=== PATIENT | female | born 1930 | race Caucasian/White ===

== ENCOUNTER 2019-01-10 10:41 | Inpatient (IN) | payer OTHER ==
[~2019-01-10] VITALS: Ht 157.5 cm; Wt 43.5 kg
[~2019-01-10 10:41] MED LIST: ASPI81TA59 PO; CHOL100013 PO; METO-239 PO; OMEG1CAP27 PO
[2019-01-10] MEDS ORDERED: ONDANSETRON PF 4 MG/2 ML VIAL. IV ONE (11:45)
[2019-01-10] MEDS ORDERED: IV NORMAL SALINE 500ML BAG 500 ML IV ONE (11:45)
[2019-01-10 12:03] LABS: BASO # 0.1 x10^3/uL (0.0-0.2); BASO % 1 % (0-3); EOS # 0.1 x10^3/uL (0.0-0.7); EOS % 1 % (0-3); HEMATOCRIT 40.5 % (36.0-47.0); LYMPH # 0.8 x10^3/uL (1.0-4.8); LYMPH % 9 % (24-48); MEAN CORPUSCULAR HEMOGLOBIN 29 pg (25-35); MEAN CORPUSCULAR HGB CONC 32 g/dL (31-37); MEAN CORPUSCULAR VOLUME 90 fL (79-100); MONO # 0.6 x10^3/uL (0.0-1.1); MONO % 7 % (0-9); NEUT # 7.1 x10^3uL (1.8-7.7); NEUT % 82 % (31-73); PLATELET COUNT 192 x10^3/uL (140-400); RED BLOOD COUNT 4.49 x10^6/uL (3.50-5.40); RED CELL DISTRIBUTION WIDTH 13.6 % (11.5-14.5); WHITE BLOOD COUNT 8.7 x10^3/uL (4.0-11.0)
[2019-01-10 12:04] LABS: BILIRUBIN,URINE NEGATIVE (NEG); CLARITY,URINE CLEAR; COLOR,URINE YELLOW; NITRITE,URINE NEGATIVE (NEG); PROTEIN,URINE 30 mg/dL (NEG-TRACE); UROBILINOGEN,URINE 0.2 mg/dL (0.2 mg/dL)
[2019-01-10 12:06] LABS: CALCIUM 9.6 mg/dL (8.5-10.1); CREATININE 1.1 mg/dL (0.6-1.0); GFR 47.1; POTASSIUM 3.8 mmol/L (3.5-5.1)
--- NOTE | 2019-01-10 12:08 | EKG ---
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
--- NOTE | 2019-01-10 12:10 | RAD ---
WRIST 3V LEFT, CHEST AP ONLY Clinical indications: Dizziness. Fall. Left wrist pain. Portable AP upright chest x-ray. COMPARISON: September 14, 2015. Findings: Old granulomatous disease is evident. Hyperinflation is seen consistent with COPD. No acute lung infiltrate or pleural effusion or pulmonary edema or lung mass or pneumothorax is seen. Heart size is enlarged but stable. The pulmonary vasculature, mediastinum and both shonda are unremarkable. Old healed lateral lower right rib cage fracture is evident. IMPRESSION: No acute radiographic abnormality is seen. COPD. Stable cardiomegaly. 3 VIEW LEFT WRIST STUDY: There is a nondisplaced fracture of the ulnar styloid process. There is fracture of the radial styloid process which is nondisplaced. Another fracture line is seen extending through the metaphysis and the epiphysis. Therefore, this is a comminuted fracture. There is mild anterior angulation of the apex of the fracture site. The fracture is impacted. No lytic process is seen. 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 IMPRESSION: Acute posttraumatic fractures of the distal left radius and ulna. Electronically signed by: Angel Pierre MD (01/10/2019 12:07 PM) [place] [id number]
[2019-01-10 12:12] LABS: ALBUMIN 3.9 g/dL (3.4-5.0); ALBUMIN/GLOBULIN RATIO 1.4 (1.0-1.7); MAGNESIUM 1.8 mg/dL (1.8-2.4); TOTAL BILIRUBIN 0.9 mg/dL (0.2-1.0); TOTAL PROTEIN 6.6 g/dL (6.4-8.2)
[2019-01-10 12:17] LABS: BACTERIA,URINE FEW /HPF (0-FEW); RBC,URINE OCC /HPF (0-2); SQUAMOUS EPITHELIAL CELL,UR FEW /LPF
--- NOTE | 2019-01-10 12:20 | RAD ---
CT HEAD AND CERVICAL SPINE WO Indication: Dizziness. Patient fell. Exposure: One or more of the following individualized dose reduction techniques were utilized for this examination: 1. Automated exposure control 2. Adjustment of the mA and/or kV according to patient size 3. Use of iterative reconstruction technique. Technique: Standard imaging without intravenous contrast. Head: No acute intracranial hemorrhage, mass effect, midline shift or abnormal extra-axial fluid collection. Mild prominence of ventricles and sulci compatible with mild atrophy. Mild white matter low attenuation, nonspecific but commonly due to chronic small vessel ischemic disease. Intracranial arterial calcifications. Orbits appear symmetric. No large scalp hematoma. Visualized sinuses are clear. No depressed skull fracture is seen. IMPRESSION: Chronic findings. No evidence of acute intracranial hemorrhage. Cervical spine Ring of C1 is intact. Cervico-occipital junction intact. C1-C2 are symmetric. Vertebral body height and alignment are intact. There is no evidence of acute fracture. No aggressive bone destruction. Multilevel degenerative change with marginal spurring. Facet joint degenerative change without locked or perched facet joint. Bilateral neural foraminal encroachment at multiple levels. No high-grade central osseous spinal stenosis. No prevertebral soft tissue swelling or hematoma. No large thyroid mass. Lung apices appear grossly clear. IMPRESSION: 1. Degenerative spondylosis. 2. No evidence of acute fracture or traumatic subluxation. Electronically signed by: Jose Sevilla MD (01/10/2019 12:17 PM) [facility]
--- NOTE | 2019-01-10 12:42 | PHYS DOC ---
Past Medical History Past Medical History: Arthritis, Hypertension Past Surgical History: Cholecystectomy Alcohol Use: None Drug Use: None Adult General Chief Complaint Chief Complaint: SYNCOPE HPI HPI 88 y/o female presents to ER via POV following a near syncope episode at home this morning around 8:30 a.m.. She reports she had a couple of episodes where she would try and stand up and became dizziness and didn't felt right. She reports she stood and tried to walk however feeling so dizzy and feeling faint she fell forward. She reports she brace herself during fall with her lt upper extremity and has deformity/swelling/pain at lt wrist. She denies striking her head or having any head/neck/back pain. Pt denies any CP/palpitations/SOA. Pt's son is at bedside during discussion and exam. Review of Systems Review of Systems Constitutional: Denies fever or chills. Denies LOC Eyes: Denies change in visual acuity, redness, or eye pain [] HENT: Denies nasal congestion or sore throat [] Respiratory: Denies cough or shortness of breath [] Cardiovascular: Denies CP GI: Denies abdominal pain, nausea, vomiting, bloody stools or diarrhea [] : Denies dysuria or hematuria [] Musculoskeletal: Denies back/neck pain. Reports lt wrist pain/swelling Integument: Denies rash or skin lesions [] Neurologic: Denies headache, focal weakness or sensory changes. Reports dizzine ss and feeling faint/near syncope episode All other systems were reviewed and found to be within normal limits, except as documented in this note. Current Medications Current Medications Current Medications Medications (Trade) Dose Ordered Sig/Kiya Start Time Stop Time Status Last Admin Dose Admin Ondansetron HCl (Zofran) 4 mg 1X ONCE 01/10/19 11:45 01/10/19 11:46 DC 01/10/19 11:48 4 MG Sodium Chloride 500 ml @ 500 mls/hr 1X ONCE 01/10/19 11:45 01/10/19 12:44 DC 01/10/19 11:49 500 MLS/HR Allergies Allergies Allergies Coded Allergies Type Severity Reaction Last Updated Verified NSAIDS (Non-Steroidal Anti-Inflamma Allergy Intermediate 09/15/15 Yes Opioids - Morphine Analogues Allergy Intermediate 09/15/15 Yes Opioids-Meperidine and Related Allergy Intermediate 09/15/15 Yes Opioids-Methadone and Related Allergy Intermediate 09/15/15 Yes butorphanol Allergy Intermediate 09/15/15 Yes codeine Allergy Intermediate 09/15/15 Yes hydrocodone Allergy Intermediate 09/15/15 Yes oxycodone Allergy Intermediate 09/15/15 Yes pentazocine Allergy Intermediate 09/15/15 Yes Physical Exam Physical Exam Constitutional: Well developed, well nourished, no acute distress, non-toxic appearance. Clear speech- no facial droop HENT: Normocephalic, atraumatic, bilateral ears normal, oropharynx moist, no oral injury, nose normal. [] Eyes: 3mm PERRLA, EOMI- no pain with eye movements, no nystagmus, conjunctiva normal, no discharge. [] Neck: Normal range of motion, no tenderness on palp. mid line cspine- no deformity/crepitus, supple, no stridor. [] Cardiovascular: Heart rate regular rhythm, no murmur [] Lungs & Thorax: Bilateral breath sounds clear to auscultation- resp. equal/nonlabored. No chest wall tenderness or visible injury Abdomen: Bowel sounds normal, soft, no tenderness/distention, no masses, no pulsatile masses. [] Skin: Warm, dry Back: No tenderness midline spine- no palp. deformity, no CVA tenderness. [] Extremities: Pelvis stable/nontender. No cyanosis, no clubbing. Rt bilat. LEs nontender w/full ROM. 2+ dorsalis pedis/posterior tibial. Rt upper exam NL. 2+ bilat. radial. Lt shoulder/elbow nontender w/full ROM no palp. deformity. Lt distal forearm swelling/deformity to anterior wrist- decreased ROM. Nontender lt hand/fingers- cap refill brisk and pt able to move all fingers. Neurologic: Alert and oriented X 3, normal motor function, normal sensory function, no focal deficits noted. [] Psychologic: Affect normal, judgement normal, mood normal. [] Current Patient Data Vital Signs Vital Signs Date Time Temp Pulse Resp B/P (MAP) Pulse Ox O2 Delivery O2 Flow Rate FiO2 01/10/19 12:00 70 16 179/85 (116) 98 Room Air 01/10/19 11:11 98.6 98.6 Lab Values Laboratory Tests Test 01/10/19 11:10 01/10/19 11:30 Urine Collection Type Unknown Urine Color Yellow Urine Clarity Clear Urine pH 5.0 Urine Specific [place] 1.025 Urine Protein 30 mg/dL (NEG-TRACE) Urine Glucose (UA) Negative mg/dL (NEG) Urine Ketones (Stick) Negative mg/dL (NEG) Urine Blood Negative (NEG) Urine Nitrite Negative (NEG) Urine Bilirubin Negative (NEG) Urine Urobilinogen Dipstick 0.2 mg/dL (0.2 mg/dL) Urine Leukocyte Esterase Negative (NEG) Urine RBC Occ /HPF (0-2) Urine WBC 1-4 /HPF (0-4) Urine Squamous Epithelial Cells Few /LPF Urine Bacteria Few /HPF (0-FEW) Urine Mucus Marked /LPF White Blood Count 8.7 x10^3/uL (4.0-11.0) Red Blood Count 4.49 x10^6/uL (3.50-5.40) Hemoglobin 13.0 g/dL (12.0-15.5) Hematocrit 40.5 % (36.0-47.0) Mean Corpuscular Volume 90 fL (79-100) Mean Corpuscular Hemoglobin 29 pg (25-35) Mean Corpuscular Hemoglobin Concent 32 g/dL (31-37) Red Cell Distribution Width 13.6 % (11.5-14.5) Platelet Count 192 x10^3/uL (140-400) Neutrophils (%) (Auto) 82 % (31-73) H Lymphocytes (%) (Auto) 9 % (24-48) L Monocytes (%) (Auto) 7 % (0-9) Eosinophils (%) (Auto) 1 % (0-3) Basophils (%) (Auto) 1 % (0-3) Neutrophils # (Auto) 7.1 x10^3uL (1.8-7.7) Lymphocytes # (Auto) 0.8 x10^3/uL (1.0-4.8) L Monocytes # (Auto) 0.6 x10^3/uL (0.0-1.1) Eosinophils # (Auto) 0.1 x10^3/uL (0.0-0.7) Basophils # (Auto) 0.1 x10^3/uL (0.0-0.2) Sodium Level 139 mmol/L (136-145) Potassium Level 3.8 mmol/L (3.5-5.1) Chloride Level 101 mmol/L (98-107) Carbon Dioxide Level 27 mmol/L (21-32) Anion Gap 11 (6-14) Blood Urea Nitrogen 23 mg/dL (7-20) H Creatinine 1.1 mg/dL (0.6-1.0) H Estimated GFR (Cockcroft-Gault) 47.1 BUN/Creatinine Ratio 21 (6-20) H Glucose Level 127 mg/dL (70-99) H Calcium Level 9.6 mg/dL (8.5-10.1) Magnesium Level 1.8 mg/dL (1.8-2.4) Total Bilirubin 0.9 mg/dL (0.2-1.0) Aspartate Amino Transferase (AST) 23 U/L (15-37) Alanine Aminotransferase (ALT) 29 U/L (14-59) Alkaline Phosphatase 42 U/L (46-116) L Troponin I Quantitative < 0.017 ng/mL (0.000-0.055) Total Protein 6.6 g/dL (6.4-8.2) Albumin 3.9 g/dL (3.4-5.0) Albumin/Globulin Ratio 1.4 (1.0-1.7) Laboratory Tests 01/10/19 11:30 Laboratory Tests 01/10/19 11:30 EKG EKG EKG obtained 01/10/19 at [address] Hernandez Sinus rhythm PACs Rate 73 No STEMI Radiology/Procedures Radiology/Procedures PROCEDURE: CHEST AP ONLY WRIST 3V LEFT, CHEST AP ONLY Clinical indications: Dizziness. Fall. Left wrist pain. Portable AP upright chest x-ray. COMPARISON: September 14, 2015. Findings: Old granulomatous disease is evident. Hyperinflation is seen consistent with COPD. No acute lung infiltrate or pleural effusion or pulmonary edema or lung mass or pneumothorax is seen. Heart size is enlarged but stable. The pulmonary vasculature, mediastinum and both shonda are unremarkable. Old healed lateral lower right rib cage fracture is evident. IMPRESSION: No acute radiographic abnormality is seen. COPD. Stable cardiomegaly. 3 VIEW LEFT WRIST STUDY: There is a nondisplaced fracture of the ulnar styloid process. There is fracture of the radial styloid process which is nondisplaced. Another fracture line is seen extending through the metaphysis and the epiphysis. Therefore, this is a comminuted fracture. There is mild anterior angulation of the apex of the fracture site. The fracture is impacted. No lytic process is seen. 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 IMPRESSION: Acute posttraumatic fractures of the distal left radius and ulna. Electronically signed by: David Pierre MD (01/10/2019 12:07 PM) [facility] DICTATED and SIGNED BY: DAVID PEIRRE MD DATE: 01/10/19 1207 PROCEDURE: CT HEAD AND CERVICAL SPINE WO CT HEAD AND CERVICAL SPINE WO Indication: Dizziness. Patient fell. Exposure: One or more of the following individualized dose reduction techniques were utilized for this examination: 1. Automated exposure control 2. Adjustment of the mA and/or kV according to patient size 3. Use of iterative reconstruction technique. Technique: Standard imaging without intravenous contrast. Head: No acute intracranial hemorrhage, mass effect, midline shift or abnormal extra-axial fluid collection. Mild prominence of ventricles and sulci compatible with mild atrophy. Mild white matter low attenuation, nonspecific but commonly due to chronic small vessel ischemic disease. Intracranial arterial calcifications. Orbits appear symmetric. No large scalp hematoma. Visualized sinuses are clear. No depressed skull fracture is seen. IMPRESSION: Chronic findings. No evidence of acute intracranial hemorrhage. Cervical spine Ring of C1 is intact. Cervico-occipital junction intact. C1-C2 are symmetric. Vertebral body height and alignment are intact. There is no evidence of acute fracture. No aggressive bone destruction. Multilevel degenerative change with marginal spurring. Facet joint degenerative change without locked or perched facet joint. Bilateral neural foraminal encroachment at multiple levels. No high-grade central osseous spinal stenosis. No prevertebral soft tissue swelling or hematoma. No large thyroid mass. Lung apices appear grossly clear. IMPRESSION: 1. Degenerative spondylosis. 2. No evidence of acute fracture or traumatic subluxation. Electronically signed by: Jose Sevilla MD (01/10/2019 12:17 PM) [facility] DICTATED and SIGNED BY: JOSE SEVILLA MD DATE: 01/10/19 1217 Course & Med Decision Making Course & Med Decision Making Pertinent Labs and Imaging studies reviewed. (See chart for details) 1230: Patient was evaluated in the ER for near syncope episode which caused her to fall forward. Patient had labs, EKG, and imaging done. Pt was reluctant on pain meds d/t previous sensitivity. Head and C-spine images negative for acute findings and patient denies striking her head. CT was obtained due to dizziness but with fall when ahead and obtain cervical spine imaging as well. Chest x-ray negative for acute findings. Left wrist x-ray showing acute fractures to distal ulna/radius. Volar splint was placed on patient and she remains PMS intact lt upper extremity following splint and in all other extremities. Pt reported improved pain w/splint placement. Patient has had no confusion remaining alert and oriented 3. At this time patient continues to complain of feeling lightheaded after 500 mL normal saline bolus and just not feeling right- she has no focal neuro deficits and has had no decreased LOC or change in MS. With patient living alone and her ongoing lightheadedness and not feeling herself discussed admission with her- she is preferring admission for further monitoring- will admit to hospitalist services for further monitoring and care. She continues to deny any chest pain or shortness of air. Patient's son at bedside during discussion. Will consult orthopedics with admit orders for lt wrist fx. Dragon Disclaimer Dragon Disclaimer This electronic medical record was generated, in whole or in part, using a voice recognition dictation system. Departure Departure Impression: Primary Impression: Near syncope Additional Impression: Wrist fracture, left Disposition: ADMITTED INPATIENT Admitting Physician: Alberto Tamez Condition: STABLE Referrals: UNKNOWN PCP NAME (PCP) Scripts Hydralazine Hcl (HYDRALAZINE HCL) 10 Mg Tablet 1 TAB PO BID for htn, #60 TAB 3 Refills Prov: JULIANA HOWELL MD 01/11/19 Problem Qualifiers SEDA SANDOVAL APRN January 10, 2019 12:42
--- NOTE | 2019-01-10 13:52 | PDOC1 ---
History and Physical Date of Admission Date of Admission DATE: 01/10/19 TIME: 13:51 Identification/Chief Complaint Chief Complaint fall at home today, was dizzy prior to fall, denies LOC, SEEN IN ER Past Medical History Past Medical History Past Medical History Past Medical History: Arthritis, Hypertension Past Surgical History: Cholecystectomy Alcohol Use: None Drug Use: None family hx htn Cardiovascular: HTN Musculoskeletal: Osteoarthritis Past Surgical History Past Surgical History: Cholecystectomy Family History Family History: Hypertension Social History Smoke: No ALCOHOL: none Drugs: None Current Problem List Problem List Problems Medical Problems: (1) Wrist fracture, left Status: Acute Current Medications Current Medications Current Medications Sodium Chloride 500 ml @ 500 mls/hr 1X ONCE IV Last administered on 01/10/19at 11:49; Start 01/10/19 at 11:45; Stop 01/10/19 at 12:44; Status DC Ondansetron HCl (Zofran) 4 mg 1X ONCE IV Last administered on 01/10/19at 11:48; Start 01/10/19 at 11:45; Stop 01/10/19 at 11:46; Status DC Acetaminophen (Tylenol) 650 mg PRN Q4HRS PRN PO PAIN; Start 01/10/19 at 13:15; Stop 01/11/19 at 13:14 Active Scripts Active Reported Vitamin D (Cholecalciferol (Vitamin D3)) 1,000 Unit Capsule 1 Cap PO DAILY Children's Aspirin (Aspirin) 81 Mg Tab.chew 81 Mg PO DAILY Fish Oil 1,000 Mg Softgel ([place]-3 Fatty Acids/Fish Oil) 1 Each Capsule 1 Each PO BID Metoprolol Succinate ( Xl ) (Metoprolol Succinate) 25 Mg Tab.er.24h 1 Tab PO DAILY Allergies Allergies: Coded Allergies: NSAIDS (Non-Steroidal Anti-Inflamma (Verified Allergy, Intermediate, 09/15/15) Opioids - Morphine Analogues (Verified Allergy, Intermediate, 09/15/15) Opioids-Meperidine and Related (Verified Allergy, Intermediate, 09/15/15) Opioids-Methadone and Related (Verified Allergy, Intermediate, 09/15/15) butorphanol (Verified Allergy, Intermediate, 09/15/15) codeine (Verified Allergy, Intermediate, 09/15/15) hydrocodone (Verified Allergy, Intermediate, 09/15/15) oxycodone (Verified Allergy, Intermediate, 09/15/15) pentazocine (Verified Allergy, Intermediate, 09/15/15) ROS Review of System Review of Systems Review of Systems Constitutional: Denies fever or chills [] Eyes: Denies change in visual acuity, redness, or eye pain [] HENT: Denies nasal congestion or sore throat [] Respiratory: Denies cough or shortness of breath [] Cardiovascular: No additional information not addressed in HPI [] GI: Denies abdominal pain, nausea, vomiting, bloody stools or diarrhea [] : Denies dysuria or hematuria [] Musculoskeletal: Denies back pain pos wrist joint pain [] Integument: Denies rash or skin lesions [] Neurologic: Denies headache, focal weakness or sensory changes [] Endocrine: Denies polyuria or polydipsia [] 14 pt systems were reviewed and found to be within normal limits, except as documented Hematological and Lymphatic: No: Bleeding Problems, Blood Clots, Blood Transfusions, Brusing, Night Sweats, Pallor, Swollen Lymph Nodes, Other Respiratory: No: Cough, Hemoptysis, Orthopnea, Pleuritic Pain, Shortness of breath, SOB with excertion, Sputum Changes, Stridor, Tachypnea, Wheezing, Other Cardiovascular: No Chest Pain, No Palpitations, No Orthopnea, No Paroxysmal Noc. Dyspnea, No Edema, No Lt Headedness, No Other Gastrointestinal: No Nausea, No Vomiting, No Abdominal Pain, No Diarrhea, No Constipation, No Melena, No Hematochezia, No Other Musculoskeletal: Yes Joint Pain Physical Exam Physical Exam Physical Exam Physical Exam Constitutional: Well developed, well nourished, mild acute distress, non-toxic appearance. [] HENT: Normocephalic, atraumatic, bilateral external ears normal, oropharynx moist, no oral exudates, nose normal. [] Eyes: PERRLA, EOMI, conjunctiva normal, no discharge. [] Neck: Normal range of motion, no tenderness, supple, no stridor. [] Cardiovascular:Heart rate regular rhythm, no murmur [] Lungs & Thorax: Bilateral breath sounds clear to auscultation [] Abdomen: Bowel sounds normal, soft, no tenderness, no masses, no pulsatile masses. [] Skin: Warm, dry, no erythema, no rash. [] Back: No tenderness, no CVA tenderness. [] Extremities: wrist tenderness, no cyanosis, no clubbing, [] Neurologic: Alert and oriented X 3, normal motor function, normal sensory function, no focal deficits noted. [] Psychologic: Affect normal, judgement normal, mood normal. [] Breasts: Not examined Abdomen: Normal bowel sounds, Soft Neuro: Normal speech, Cranial nerves 3-12 NL Psych/Mental Status: Mental status NL, Mood NL Vitals Vitals Vital Signs Date Time Temp Pulse Resp B/P (MAP) Pulse Ox O2 Delivery O2 Flow Rate FiO2 01/10/19 13:00 68 16 178/86 (116) 95 Room Air 01/10/19 11:11 98.6 98.6 Labs Labs Laboratory Tests Test 01/10/19 11:10 01/10/19 11:30 Urine Collection Type Unknown Urine Color Yellow Urine Clarity Clear Urine pH 5.0 Urine Specific [place] 1.025 Urine Protein 30 mg/dL (NEG-TRACE) Urine Glucose (UA) Negative mg/dL (NEG) Urine Ketones (Stick) Negative mg/dL (NEG) Urine Blood Negative (NEG) Urine Nitrite Negative (NEG) Urine Bilirubin Negative (NEG) Urine Urobilinogen Dipstick 0.2 mg/dL (0.2 mg/dL) Urine Leukocyte Esterase Negative (NEG) Urine RBC Occ /HPF (0-2) Urine WBC 1-4 /HPF (0-4) Urine Squamous Epithelial Cells Few /LPF Urine Bacteria Few /HPF (0-FEW) Urine Mucus Marked /LPF White Blood Count 8.7 x10^3/uL (4.0-11.0) Red Blood Count 4.49 x10^6/uL (3.50-5.40) Hemoglobin 13.0 g/dL (12.0-15.5) Hematocrit 40.5 % (36.0-47.0) Mean Corpuscular Volume 90 fL (79-100) Mean Corpuscular Hemoglobin 29 pg (25-35) Mean Corpuscular Hemoglobin Concent 32 g/dL (31-37) Red Cell Distribution Width 13.6 % (11.5-14.5) Platelet Count 192 x10^3/uL (140-400) Neutrophils (%) (Auto) 82 % (31-73) Lymphocytes (%) (Auto) 9 % (24-48) Monocytes (%) (Auto) 7 % (0-9) Eosinophils (%) (Auto) 1 % (0-3) Basophils (%) (Auto) 1 % (0-3) Neutrophils # (Auto) 7.1 x10^3uL (1.8-7.7) Lymphocytes # (Auto) 0.8 x10^3/uL (1.0-4.8) Monocytes # (Auto) 0.6 x10^3/uL (0.0-1.1) Eosinophils # (Auto) 0.1 x10^3/uL (0.0-0.7) Basophils # (Auto) 0.1 x10^3/uL (0.0-0.2) Sodium Level 139 mmol/L (136-145) Potassium Level 3.8 mmol/L (3.5-5.1) Chloride Level 101 mmol/L (98-107) Carbon Dioxide Level 27 mmol/L (21-32) Anion Gap 11 (6-14) Blood Urea Nitrogen 23 mg/dL (7-20) Creatinine 1.1 mg/dL (0.6-1.0) Estimated GFR (Cockcroft-Gault) 47.1 BUN/Creatinine Ratio 21 (6-20) Glucose Level 127 mg/dL (70-99) Calcium Level 9.6 mg/dL (8.5-10.1) Magnesium Level 1.8 mg/dL (1.8-2.4) Total Bilirubin 0.9 mg/dL (0.2-1.0) Aspartate Amino Transf (AST/SGOT) 23 U/L (15-37) Alanine Aminotransferase (ALT/SGPT) 29 U/L (14-59) Alkaline Phosphatase 42 U/L (46-116) Troponin I Quantitative < 0.017 ng/mL (0.000-0.055) Total Protein 6.6 g/dL (6.4-8.2) Albumin 3.9 g/dL (3.4-5.0) Albumin/Globulin Ratio 1.4 (1.0-1.7) Laboratory Tests Test 01/10/19 11:10 01/10/19 11:30 Urine Collection Type Unknown Urine Color Yellow Urine Clarity Clear Urine pH 5.0 Urine Specific [place] 1.025 Urine Protein 30 mg/dL (NEG-TRACE) Urine Glucose (UA) Negative mg/dL (NEG) Urine Ketones (Stick) Negative mg/dL (NEG) Urine Blood Negative (NEG) Urine Nitrite Negative (NEG) Urine Bilirubin Negative (NEG) Urine Urobilinogen Dipstick 0.2 mg/dL (0.2 mg/dL) Urine Leukocyte Esterase Negative (NEG) Urine RBC Occ /HPF (0-2) Urine WBC 1-4 /HPF (0-4) Urine Squamous Epithelial Cells Few /LPF Urine Bacteria Few /HPF (0-FEW) Urine Mucus Marked /LPF White Blood Count 8.7 x10^3/uL (4.0-11.0) Red Blood Count 4.49 x10^6/uL (3.50-5.40) Hemoglobin 13.0 g/dL (12.0-15.5) Hematocrit 40.5 % (36.0-47.0) Mean Corpuscular Volume 90 fL (79-100) Mean Corpuscular Hemoglobin 29 pg (25-35) Mean Corpuscular Hemoglobin Concent 32 g/dL (31-37) Red Cell Distribution Width 13.6 % (11.5-14.5) Platelet Count 192 x10^3/uL (140-400) Neutrophils (%) (Auto) 82 % (31-73) Lymphocytes (%) (Auto) 9 % (24-48) Monocytes (%) (Auto) 7 % (0-9) Eosinophils (%) (Auto) 1 % (0-3) Basophils (%) (Auto) 1 % (0-3) Neutrophils # (Auto) 7.1 x10^3uL (1.8-7.7) Lymphocytes # (Auto) 0.8 x10^3/uL (1.0-4.8) Monocytes # (Auto) 0.6 x10^3/uL (0.0-1.1) Eosinophils # (Auto) 0.1 x10^3/uL (0.0-0.7) Basophils # (Auto) 0.1 x10^3/uL (0.0-0.2) Sodium Level 139 mmol/L (136-145) Potassium Level 3.8 mmol/L (3.5-5.1) Chloride Level 101 mmol/L (98-107) Carbon Dioxide Level 27 mmol/L (21-32) Anion Gap 11 (6-14) Blood Urea Nitrogen 23 mg/dL (7-20) Creatinine 1.1 mg/dL (0.6-1.0) Estimated GFR (Cockcroft-Gault) 47.1 BUN/Creatinine Ratio 21 (6-20) Glucose Level 127 mg/dL (70-99) Calcium Level 9.6 mg/dL (8.5-10.1) Magnesium Level 1.8 mg/dL (1.8-2.4) Total Bilirubin 0.9 mg/dL (0.2-1.0) Aspartate Amino Transf (AST/SGOT) 23 U/L (15-37) Alanine Aminotransferase (ALT/SGPT) 29 U/L (14-59) Alkaline Phosphatase 42 U/L (46-116) Troponin I Quantitative < 0.017 ng/mL (0.000-0.055) Total Protein 6.6 g/dL (6.4-8.2) Albumin 3.9 g/dL (3.4-5.0) Albumin/Globulin Ratio 1.4 (1.0-1.7) Images Images CT HEAD AND CERVICAL SPINE WO Indication: Dizziness. Patient fell. Exposure: One or more of the following individualized dose reduction techniques were utilized for this examination: 1. Automated exposure control 2. Adjustment of the mA and/or kV according to patient size 3. Use of iterative reconstruction technique. Technique: Standard imaging without intravenous contrast. Head: No acute intracranial hemorrhage, mass effect, midline shift or abnormal extra-axial fluid collection. Mild prominence of ventricles and sulci compatible with mild atrophy. Mild white matter low attenuation, nonspecific but commonly due to chronic small vessel ischemic disease. Intracranial arterial calcifications. Orbits appear symmetric. No large scalp hematoma. Visualized sinuses are clear. No depressed skull fracture is seen. IMPRESSION: Chronic findings. No evidence of acute intracranial hemorrhage. Cervical spine Ring of C1 is intact. Cervico-occipital junction intact. C1-C2 are symmetric. Vertebral body height and alignment are intact. There is no evidence of acute fracture. No aggressive bone destruction. Multilevel degenerative change with marginal spurring. Facet joint degenerative change without locked or perched facet joint. Bilateral neural foraminal encroachment at multiple levels. No high-grade central osseous spinal stenosis. No prevertebral soft tissue swelling or hematoma. No large thyroid mass. Lung apices appear grossly clear. IMPRESSION: 1. Degenerative spondylosis. 2. No evidence of acute fracture or traumatic subluxation. Electronically signed by: Cindy Sevilla MD (01/10/2019 12:17 PM) [facility] DICTATED and SIGNED BY: CINDY SEVILLA MD DATE: 01/10/19 1217 VTE Prophylaxis Ordered VTE Prophylaxis Devices: Yes VTE Pharmacological Prophylaxi: Yes Assessment/Plan Assessment/Plan Assessment/Plan fall with no LOC No acute intracranial hemorrhage, mass effect, midline shift or abnormal extra-axial fluid collection. Mild prominence of ventricles and sulci compatible with mild atrophy. Mild white matter low attenuation, nonspecific but commonly due to chronic small vessel ischemic disease. Intracranial arterial calcifications.on ct head dIZZINESS gait instability non displaced left wrist distal radius and ulna fractures. Acute posttraumatic fractures of the distal left radius and ulna. ER splint in place. removable wrist splint from [employer].requested [employer] Neurochecks q [address] head PT/OT Neurology consult FALL RISK PRECAUTIONS dvt prophylaxis 57 min pt exam, chart review, > 50% of time spent with exam, chart review, pt care coordination DILMA HYLTON MD January 10, 2019 13:52
[2019-01-10 14:15] VITALS: BP 179/95
[2019-01-10] MEDS: ACETAMINOPHEN 325 MG TABLET. PO PRN ×2 (14:55→20:33)
--- NOTE | 2019-01-10 16:03 | PDOC2 ---
GENESIS CORCORAN [employer]PER[employer] HELPER 01/10/19 1603: CONSULT Date of Consult Date of Consult DATE: 01/10/19 TIME: 15:52 Reason for Consult Reason for Consult: left wrist fracture Referring Physician Referring Physician: Dr Banks Identification/Chief Complaint Chief Complaint left wrist pain after fall Source Source: Caregiver, Chart review, Patient History of Present Illness Reason for Visit: The patient states she lost her balance at home and fell extending her left wrist. Was brought to [facility] ER for evaluation. Past Medical History Cardiovascular: HTN Musculoskeletal: Osteoarthritis Past Surgical History Past Surgical History: Cholecystectomy Social History No ALCOHOL: none Drugs: None Current Problem List Problem List Problems Medical Problems: (1) Wrist fracture, left Status: Acute Current Medications Current Medications Current Medications Sodium Chloride 500 ml @ 500 mls/hr 1X ONCE IV Last administered on 01/10/19at 11:49; Start 01/10/19 at 11:45; Stop 01/10/19 at 12:44; Status DC Ondansetron HCl (Zofran) 4 mg 1X ONCE IV Last administered on 01/10/19at 11:48; Start 01/10/19 at 11:45; Stop 01/10/19 at 11:46; Status DC Acetaminophen (Tylenol) 650 mg PRN Q4HRS PRN PO PAIN Last administered on 01/10/19at 14:55; Start 01/10/19 at 13:15; Stop 01/11/19 at 13:14 Active Scripts Active Reported Vitamin D (Cholecalciferol (Vitamin D3)) 1,000 Unit Capsule 1 Cap PO DAILY Children's Aspirin (Aspirin) 81 Mg Tab.chew 81 Mg PO DAILY Fish Oil 1,000 Mg Softgel ([place]-3 Fatty Acids/Fish Oil) 1 Each Capsule 1 Each PO BID Metoprolol Succinate ( Xl ) (Metoprolol Succinate) 25 Mg Tab.er.24h 1 Tab PO DAILY Allergies Allergies: Coded Allergies: NSAIDS (Non-Steroidal Anti-Inflamma (Verified Allergy, Intermediate, 09/15/15) Opioids - Morphine Analogues (Verified Allergy, Intermediate, 09/15/15) Opioids-Meperidine and Related (Verified Allergy, Intermediate, 09/15/15) Opioids-Methadone and Related (Verified Allergy, Intermediate, 09/15/15) butorphanol (Verified Allergy, Intermediate, 09/15/15) codeine (Verified Allergy, Intermediate, 09/15/15) hydrocodone (Verified Allergy, Intermediate, 09/15/15) oxycodone (Verified Allergy, Intermediate, 09/15/15) pentazocine (Verified Allergy, Intermediate, 09/15/15) Physical Exam General: Alert, Oriented X3, Cooperative, mild distress Neuro: Normal speech MUSCULOSKELETAL: Abnormal exam of left (Patient in splint from ER. s/p fractured left wrist.) Vitals VITALS Vital Signs Date Time Temp Pulse Resp B/P (MAP) Pulse Ox O2 Delivery O2 Flow Rate FiO2 01/10/19 13:00 68 16 178/86 (116) 95 Room Air 01/10/19 11:11 98.6 98.6 Labs Labs Laboratory Tests Test 01/10/19 11:10 01/10/19 11:30 Urine Collection Type Unknown Urine Color Yellow Urine Clarity Clear Urine pH 5.0 Urine Specific [place] 1.025 Urine Protein 30 mg/dL (NEG-TRACE) Urine Glucose (UA) Negative mg/dL (NEG) Urine Ketones (Stick) Negative mg/dL (NEG) Urine Blood Negative (NEG) Urine Nitrite Negative (NEG) Urine Bilirubin Negative (NEG) Urine Urobilinogen Dipstick 0.2 mg/dL (0.2 mg/dL) Urine Leukocyte Esterase Negative (NEG) Urine RBC Occ /HPF (0-2) Urine WBC 1-4 /HPF (0-4) Urine Squamous Epithelial Cells Few /LPF Urine Bacteria Few /HPF (0-FEW) Urine Mucus Marked /LPF White Blood Count 8.7 x10^3/uL (4.0-11.0) Red Blood Count 4.49 x10^6/uL (3.50-5.40) Hemoglobin 13.0 g/dL (12.0-15.5) Hematocrit 40.5 % (36.0-47.0) Mean Corpuscular Volume 90 fL (79-100) Mean Corpuscular Hemoglobin 29 pg (25-35) Mean Corpuscular Hemoglobin Concent 32 g/dL (31-37) Red Cell Distribution Width 13.6 % (11.5-14.5) Platelet Count 192 x10^3/uL (140-400) Neutrophils (%) (Auto) 82 % (31-73) Lymphocytes (%) (Auto) 9 % (24-48) Monocytes (%) (Auto) 7 % (0-9) Eosinophils (%) (Auto) 1 % (0-3) Basophils (%) (Auto) 1 % (0-3) Neutrophils # (Auto) 7.1 x10^3uL (1.8-7.7) Lymphocytes # (Auto) 0.8 x10^3/uL (1.0-4.8) Monocytes # (Auto) 0.6 x10^3/uL (0.0-1.1) Eosinophils # (Auto) 0.1 x10^3/uL (0.0-0.7) Basophils # (Auto) 0.1 x10^3/uL (0.0-0.2) Sodium Level 139 mmol/L (136-145) Potassium Level 3.8 mmol/L (3.5-5.1) Chloride Level 101 mmol/L (98-107) Carbon Dioxide Level 27 mmol/L (21-32) Anion Gap 11 (6-14) Blood Urea Nitrogen 23 mg/dL (7-20) Creatinine 1.1 mg/dL (0.6-1.0) Estimated GFR (Cockcroft-Gault) 47.1 BUN/Creatinine Ratio 21 (6-20) Glucose Level 127 mg/dL (70-99) Calcium Level 9.6 mg/dL (8.5-10.1) Magnesium Level 1.8 mg/dL (1.8-2.4) Total Bilirubin 0.9 mg/dL (0.2-1.0) Aspartate Amino Transf (AST/SGOT) 23 U/L (15-37) Alanine Aminotransferase (ALT/SGPT) 29 U/L (14-59) Alkaline Phosphatase 42 U/L (46-116) Troponin I Quantitative < 0.017 ng/mL (0.000-0.055) Total Protein 6.6 g/dL (6.4-8.2) Albumin 3.9 g/dL (3.4-5.0) Albumin/Globulin Ratio 1.4 (1.0-1.7) Laboratory Tests Test 01/10/19 11:10 01/10/19 11:30 Urine Collection Type Unknown Urine Color Yellow Urine Clarity Clear Urine pH 5.0 Urine Specific [place] 1.025 Urine Protein 30 mg/dL (NEG-TRACE) Urine Glucose (UA) Negative mg/dL (NEG) Urine Ketones (Stick) Negative mg/dL (NEG) Urine Blood Negative (NEG) Urine Nitrite Negative (NEG) Urine Bilirubin Negative (NEG) Urine Urobilinogen Dipstick 0.2 mg/dL (0.2 mg/dL) Urine Leukocyte Esterase Negative (NEG) Urine RBC Occ /HPF (0-2) Urine WBC 1-4 /HPF (0-4) Urine Squamous Epithelial Cells Few /LPF Urine Bacteria Few /HPF (0-FEW) Urine Mucus Marked /LPF White Blood Count 8.7 x10^3/uL (4.0-11.0) Red Blood Count 4.49 x10^6/uL (3.50-5.40) Hemoglobin 13.0 g/dL (12.0-15.5) Hematocrit 40.5 % (36.0-47.0) Mean Corpuscular Volume 90 fL (79-100) Mean Corpuscular Hemoglobin 29 pg (25-35) Mean Corpuscular Hemoglobin Concent 32 g/dL (31-37) Red Cell Distribution Width 13.6 % (11.5-14.5) Platelet Count 192 x10^3/uL (140-400) Neutrophils (%) (Auto) 82 % (31-73) Lymphocytes (%) (Auto) 9 % (24-48) Monocytes (%) (Auto) 7 % (0-9) Eosinophils (%) (Auto) 1 % (0-3) Basophils (%) (Auto) 1 % (0-3) Neutrophils # (Auto) 7.1 x10^3uL (1.8-7.7) Lymphocytes # (Auto) 0.8 x10^3/uL (1.0-4.8) Monocytes # (Auto) 0.6 x10^3/uL (0.0-1.1) Eosinophils # (Auto) 0.1 x10^3/uL (0.0-0.7) Basophils # (Auto) 0.1 x10^3/uL (0.0-0.2) Sodium Level 139 mmol/L (136-145) Potassium Level 3.8 mmol/L (3.5-5.1) Chloride Level 101 mmol/L (98-107) Carbon Dioxide Level 27 mmol/L (21-32) Anion Gap 11 (6-14) Blood Urea Nitrogen 23 mg/dL (7-20) Creatinine 1.1 mg/dL (0.6-1.0) Estimated GFR (Cockcroft-Gault) 47.1 BUN/Creatinine Ratio 21 (6-20) Glucose Level 127 mg/dL (70-99) Calcium Level 9.6 mg/dL (8.5-10.1) Magnesium Level 1.8 mg/dL (1.8-2.4) Total Bilirubin 0.9 mg/dL (0.2-1.0) Aspartate Amino Transf (AST/SGOT) 23 U/L (15-37) Alanine Aminotransferase (ALT/SGPT) 29 U/L (14-59) Alkaline Phosphatase 42 U/L (46-116) Troponin I Quantitative < 0.017 ng/mL (0.000-0.055) Total Protein 6.6 g/dL (6.4-8.2) Albumin 3.9 g/dL (3.4-5.0) Albumin/Globulin Ratio 1.4 (1.0-1.7) Images Images Xrays were reviewed by myself with acute on chronic left distal radius and ulna fractures both non displaced with extensive arthritis int the hand. Assessment/Plan Assessment/Plan Patient with non displaced left wrist distal radius and ulna fractures. Patient with ER splint in place. Rx given to RN for removable wrist splint from [employer]. Icing off and on every hour with elevation on pilow. Patient to followup in clinic with Dr Patel in 1 week.Call for appt. SAW PATEL II, MD 01/11/19 1116: CONSULT Assessment/Plan Assessment/Plan Patient seen and examined. Xrays reviewed. Treatment plan formulated by myself. F/u in Ortho 10-14 days GENESIS CORCORAN APRN January 10, 2019 16:03 SAW PATEL II, MD January 11, 2019 11:16
[2019-01-10 16:48] VITALS: BP 157/89
[2019-01-10 19:13] VITALS: BP 169/84
[2019-01-10] MEDS: OMEGA-3 FATTY ACIDS/FISH OIL 1,000 MG CAPSULE. PO SCH (21:00)
[2019-01-10 23:13] VITALS: BP 151/91
[2019-01-11] MEDS: ACETAMINOPHEN 325 MG TABLET. PO PRN ×2 (02:10→07:40)
[2019-01-11 03:24] VITALS: BP 188/83
[2019-01-11 07:00] VITALS: BP 189/100
[2019-01-11] MEDS: OMEGA-3 FATTY ACIDS/FISH OIL 1,000 MG CAPSULE. PO SCH (08:10)
[2019-01-11] MEDS ORDERED: hydrALAZINE 20 MG/ML VIAL. IVP PRN (09:00)
[2019-01-11] MEDS ORDERED: traMADol 50 MG TABLET PO PRN (09:00)
[2019-01-11] MEDS ORDERED: ONDANSETRON PF 4 MG/2 ML VIAL. IV PRN (09:00)
[2019-01-11] MEDS ORDERED: CHOLECALCIFEROL (VITAMIN D3) 1,000 UNIT TABLET PO SCH (09:00)
[2019-01-11] MEDS ORDERED: KETOROLAC 15 MG/ML VIAL. IV PRN (09:00)
[2019-01-11] MEDS ORDERED: METOPROLOL SUCC 24HR ER 25 MG TAB.ER.24H. PO SCH (09:00)
[2019-01-11] MEDS ORDERED: ASPIRIN CHEWABLE 81 MG TABLET. PO SCH (09:00)
--- NOTE | 2019-01-11 09:47 | PDOC2 ---
NEUROLOGY CONSULT Date of Admission Date of Admission DATE: 01/11/19 TIME: 09:40 Reason for Consult Reason for Consult: Dizziness, fall Referring Physician Referring Physician: Dr. Santana PCP: Dr. Nieves Source Source: Chart review, Patient History of Present Illness History of Present Illness The patient is an 88-year-old right-handed female who was watching the news on her couch yesterday morning. She felt strange and tried to get up, but kept fall ing back into the couch. She finally got up and felt dizzy, felt like she could not move her legs, she fell, and ended up with a left radial and ulnar fracture. There was never any loss of consciousness. She does have a mild headache this morning. She has a history of mild headaches without photophonophobia or nausea. About 2 or 3 years ago she was worked up for vertigo and was told that it was from her eyes. She does describe some room-spinning vertigo at that time, but did not have it yesterday. There is no day [place] yeah, dysphagia, dysarthria, numbness, or focal weakness. Past Medical History Cardiovascular: HTN Musculoskeletal: Osteoarthritis Dermatology: Other (Removed benign lesion from left deltoid) Past Surgical History Past Surgical History: No pertinent history Family History Family History: Other ( mother had migraines) Social History Social History , lives alone, no alcohol or tobacco Current Medications Current Medications Current Medications Sodium Chloride 500 ml @ 500 mls/hr 1X ONCE IV Last administered on 01/10/19at 11:49; Start 01/10/19 at 11:45; Stop 01/10/19 at 12:44; Status DC Ondansetron HCl (Zofran) 4 mg 1X ONCE IV Last administered on 01/10/19at 11:48; Start 01/10/19 at 11:45; Stop 01/10/19 at 11:46; Status DC Acetaminophen (Tylenol) 650 mg PRN Q4HRS PRN PO PAIN Last administered on 01/11/19at 07:40; Start 01/10/19 at 13:15; Stop 01/11/19 at 13:14 Aspirin (Children'S Aspirin) 81 mg DAILY PO Last administered on 01/11/19at 08:10; Start 01/11/19 at 09:00 Metoprolol Succinate (Toprol Xl) 25 mg DAILY PO Last administered on 01/11/19at 08:11; Start 01/11/19 at 09:00 Vitamin D (Vitamin D3) 1,000 unit DAILY PO Last administered on 01/11/19at 08:10; Start 01/11/19 at 09:00 Fish Oil (Fish Oil) 1,000 mg BID PO Last administered on 01/11/19at 08:10; Start 01/10/19 at 21:00 Hydralazine HCl (Apresoline Inj) 10 mg PRN Q4HRS PRN IVP ELEVATED BP, SEE COMMENTS; Start 01/11/19 at 09:00 Ondansetron HCl (Zofran) 4 mg PRN Q6HRS PRN IV NAUSEA/VOMITING; Start 01/11/19 at 09:00 Tramadol HCl (Ultram) 25 mg PRN Q6HRS PRN PO PAIN; Start 01/11/19 at 09:00; Status UNV Ketorolac Tromethamine (Toradol 15mg Vial) 15 mg PRN Q6HRS PRN IV PAIN; Start 01/11/19 at 09:00; Stop 01/16/19 at 08:59 Active Scripts Active Reported Vitamin D (Cholecalciferol (Vitamin D3)) 1,000 Unit Capsule 1 Cap PO DAILY Children's Aspirin (Aspirin) 81 Mg Tab.chew 81 Mg PO DAILY Fish Oil 1,000 Mg Softgel ([place]-3 Fatty Acids/Fish Oil) 1 Each Capsule 1 Each PO BID Metoprolol Succinate ( Xl ) (Metoprolol Succinate) 25 Mg Tab.er.24h 1 Tab PO DAILY Allergies Allergies: Coded Allergies: NSAIDS (Non-Steroidal Anti-Inflamma (Verified Allergy, Intermediate, 09/15/15) Opioids - Morphine Analogues (Verified Allergy, Intermediate, 09/15/15) Opioids-Meperidine and Related (Verified Allergy, Intermediate, 09/15/15) Opioids-Methadone and Related (Verified Allergy, Intermediate, 09/15/15) butorphanol (Verified Allergy, Intermediate, 09/15/15) codeine (Verified Allergy, Intermediate, 09/15/15) hydrocodone (Verified Allergy, Intermediate, 09/15/15) oxycodone (Verified Allergy, Intermediate, 09/15/15) pentazocine (Verified Allergy, Intermediate, 09/15/15) ROS Review of System Negative for fever, chills, weight loss, shortness of breath, chest pain, indigestion, hematochezia, melena, and dysuria. Full 14-point review of systems is negative. Physical Exam Physical Examination General: Well-developed, well-nourished white female in no acute distress HEENT: Normocephalic andatraumatic. Tympanic membranes clear.Temporal arteriespulsatile and nontender. Neck: Supple without bruit, no meningismus Musculoskeletal: Stability:see neurologic. Gait exam:see neurologic. Tone:see neurologic.Strength:see neurologic. Neurological: Mental Status:intact, orientation, memory, attention span/concentration, language, fund of knowledge normal. Cranial Nerves:Pupils equal and reactive to light, extraocular movements areintact, visual davidson are full to confrontation. Facial sensation is normal. There is no facial asymmetry. Vestibulo-ocular reflex is intact. Palate elevates and tongue protrudes in midline. All other cranial related problems are negative except as mentioned before.Reflexes:2+ and symmetric with flexor plantar responses. Motor:5/5 strength with normal tone and bulk. Coordination:Finger-nose finger and [id number] testing are normal. Rapid alternating movements and fine finger movements are intact. Gait: arthritic, normal for age. Sensory:Normal pinprick, vibration, light touch, proprioception. Vitals VITALS Vital Signs Date Time Temp Pulse Resp B/P (MAP) Pulse Ox O2 Delivery O2 Flow Rate FiO2 01/11/19 08:11 66 189/100 01/11/19 07:00 97.9 16 95 Room Air 97.9 Labs Labs Laboratory Tests Test 01/10/19 11:10 01/10/19 11:30 Urine Collection Type Unknown Urine Color Yellow Urine Clarity Clear Urine pH 5.0 Urine Specific [place] 1.025 Urine Protein 30 mg/dL (NEG-TRACE) Urine Glucose (UA) Negative mg/dL (NEG) Urine Ketones (Stick) Negative mg/dL (NEG) Urine Blood Negative (NEG) Urine Nitrite Negative (NEG) Urine Bilirubin Negative (NEG) Urine Urobilinogen Dipstick 0.2 mg/dL (0.2 mg/dL) Urine Leukocyte Esterase Negative (NEG) Urine RBC Occ /HPF (0-2) Urine WBC 1-4 /HPF (0-4) Urine Squamous Epithelial Cells Few /LPF Urine Bacteria Few /HPF (0-FEW) Urine Mucus Marked /LPF White Blood Count 8.7 x10^3/uL (4.0-11.0) Red Blood Count 4.49 x10^6/uL (3.50-5.40) Hemoglobin 13.0 g/dL (12.0-15.5) Hematocrit 40.5 % (36.0-47.0) Mean Corpuscular Volume 90 fL (79-100) Mean Corpuscular Hemoglobin 29 pg (25-35) Mean Corpuscular Hemoglobin Concent 32 g/dL (31-37) Red Cell Distribution Width 13.6 % (11.5-14.5) Platelet Count 192 x10^3/uL (140-400) Neutrophils (%) (Auto) 82 % (31-73) Lymphocytes (%) (Auto) 9 % (24-48) Monocytes (%) (Auto) 7 % (0-9) Eosinophils (%) (Auto) 1 % (0-3) Basophils (%) (Auto) 1 % (0-3) Neutrophils # (Auto) 7.1 x10^3uL (1.8-7.7) Lymphocytes # (Auto) 0.8 x10^3/uL (1.0-4.8) Monocytes # (Auto) 0.6 x10^3/uL (0.0-1.1) Eosinophils # (Auto) 0.1 x10^3/uL (0.0-0.7) Basophils # (Auto) 0.1 x10^3/uL (0.0-0.2) Sodium Level 139 mmol/L (136-145) Potassium Level 3.8 mmol/L (3.5-5.1) Chloride Level 101 mmol/L (98-107) Carbon Dioxide Level 27 mmol/L (21-32) Anion Gap 11 (6-14) Blood Urea Nitrogen 23 mg/dL (7-20) Creatinine 1.1 mg/dL (0.6-1.0) Estimated GFR (Cockcroft-Gault) 47.1 BUN/Creatinine Ratio 21 (6-20) Glucose Level 127 mg/dL (70-99) Calcium Level 9.6 mg/dL (8.5-10.1) Magnesium Level 1.8 mg/dL (1.8-2.4) Total Bilirubin 0.9 mg/dL (0.2-1.0) Aspartate Amino Transf (AST/SGOT) 23 U/L (15-37) Alanine Aminotransferase (ALT/SGPT) 29 U/L (14-59) Alkaline Phosphatase 42 U/L (46-116) Troponin I Quantitative < 0.017 ng/mL (0.000-0.055) Total Protein 6.6 g/dL (6.4-8.2) Albumin 3.9 g/dL (3.4-5.0) Albumin/Globulin Ratio 1.4 (1.0-1.7) Laboratory Tests Test 01/10/19 11:10 01/10/19 11:30 Urine Collection Type Unknown Urine Color Yellow Urine Clarity Clear Urine pH 5.0 Urine Specific [place] 1.025 Urine Protein 30 mg/dL (NEG-TRACE) Urine Glucose (UA) Negative mg/dL (NEG) Urine Ketones (Stick) Negative mg/dL (NEG) Urine Blood Negative (NEG) Urine Nitrite Negative (NEG) Urine Bilirubin Negative (NEG) Urine Urobilinogen Dipstick 0.2 mg/dL (0.2 mg/dL) Urine Leukocyte Esterase Negative (NEG) Urine RBC Occ /HPF (0-2) Urine WBC 1-4 /HPF (0-4) Urine Squamous Epithelial Cells Few /LPF Urine Bacteria Few /HPF (0-FEW) Urine Mucus Marked /LPF White Blood Count 8.7 x10^3/uL (4.0-11.0) Red Blood Count 4.49 x10^6/uL (3.50-5.40) Hemoglobin 13.0 g/dL (12.0-15.5) Hematocrit 40.5 % (36.0-47.0) Mean Corpuscular Volume 90 fL (79-100) Mean Corpuscular Hemoglobin 29 pg (25-35) Mean Corpuscular Hemoglobin Concent 32 g/dL (31-37) Red Cell Distribution Width 13.6 % (11.5-14.5) Platelet Count 192 x10^3/uL (140-400) Neutrophils (%) (Auto) 82 % (31-73) Lymphocytes (%) (Auto) 9 % (24-48) Monocytes (%) (Auto) 7 % (0-9) Eosinophils (%) (Auto) 1 % (0-3) Basophils (%) (Auto) 1 % (0-3) Neutrophils # (Auto) 7.1 x10^3uL (1.8-7.7) Lymphocytes # (Auto) 0.8 x10^3/uL (1.0-4.8) Monocytes # (Auto) 0.6 x10^3/uL (0.0-1.1) Eosinophils # (Auto) 0.1 x10^3/uL (0.0-0.7) Basophils # (Auto) 0.1 x10^3/uL (0.0-0.2) Sodium Level 139 mmol/L (136-145) Potassium Level 3.8 mmol/L (3.5-5.1) Chloride Level 101 mmol/L (98-107) Carbon Dioxide Level 27 mmol/L (21-32) Anion Gap 11 (6-14) Blood Urea Nitrogen 23 mg/dL (7-20) Creatinine 1.1 mg/dL (0.6-1.0) Estimated GFR (Cockcroft-Gault) 47.1 BUN/Creatinine Ratio 21 (6-20) Glucose Level 127 mg/dL (70-99) Calcium Level 9.6 mg/dL (8.5-10.1) Magnesium Level 1.8 mg/dL (1.8-2.4) Total Bilirubin 0.9 mg/dL (0.2-1.0) Aspartate Amino Transf (AST/SGOT) 23 U/L (15-37) Alanine Aminotransferase (ALT/SGPT) 29 U/L (14-59) Alkaline Phosphatase 42 U/L (46-116) Troponin I Quantitative < 0.017 ng/mL (0.000-0.055) Total Protein 6.6 g/dL (6.4-8.2) Albumin 3.9 g/dL (3.4-5.0) Albumin/Globulin Ratio 1.4 (1.0-1.7) Images Images CT HEAD AND CERVICAL SPINE WO Indication: Dizziness. Patient fell. Exposure: One or more of the following individualized dose reduction techniques were utilized for this examination: 1. Automated exposure control 2. Adjustment of the mA and/or kV according to patient size 3. Use of iterative reconstruction technique. Technique: Standard imaging without intravenous contrast. Head: No acute intracranial hemorrhage, mass effect, midline shift or abnormal extra-axial fluid collection. Mild prominence of ventricles and sulci compatible with mild atrophy. Mild white matter low attenuation, nonspecific but commonly due to chronic small vessel ischemic disease. Intracranial arterial calcifications. Orbits appear symmetric. No large scalp hematoma. Visualized sinuses are clear. No depressed skull fracture is seen. IMPRESSION: Chronic findings. No evidence of acute intracranial hemorrhage. Cervical spine Ring of C1 is intact. Cervico-occipital junction intact. C1-C2 are symmetric. Vertebral body height and alignment are intact. There is no evidence of acute fracture. No aggressive bone destruction. Multilevel degenerative change with marginal spurring. Facet joint degenerative change without locked or perched facet joint. Bilateral neural foraminal encroachment at multiple levels. No high-grade central osseous spinal stenosis. No prevertebral soft tissue swelling or hematoma. No large thyroid mass. Lung apices appear grossly clear. IMPRESSION: 1. Degenerative spondylosis. 2. No evidence of acute fracture or traumatic subluxation. Assessment/Plan Assessment/Plan Impression: Fall, no sign of stroke or seizure, she does have a past history of vertigo and may have just gotten dizzy. I find no evidence of central or peripheral vertigo on today's examination, though. Rule out cardiac arrhythmia. She does have a headache this morning still. Recommendations: Reasonable to check a brain MRI to make sure there is no mass lesion or source of vertigo. Okay to discharge after MRI, and orthopedics have seen. I told the patient to make sure someone stays with her, such as her daughter, for the next several days. Follow-up with neurology as needed. Thank you for letting me help the patient's care. VIVIENNE DAVIS MD January 11, 2019 09:47
[2019-01-11 11:00] VITALS: BP 141/72
--- NOTE | 2019-01-11 11:02 | NUR ---
SW following pt for anticipated dc needs. Chart reviewed and discussed with RN. Pt lives at home alone. PT/OT pending. SW will await for PT/OT recommendation to assess skilled needs.
--- NOTE | 2019-01-11 11:53 | PDOC ---
PROGRESS NOTES Chief Complaint Chief Complaint Left wrist [id number] Dr. Patel 1 to 2 weeks Traumatic fall at home Accelerated hypertension POA-systolic 180s Dizziness No syncope Geriatric Full code History of Present Illness History of Present Illness She lives at home with a PET, still drives Was dizzy possibly high blood pressure and then fell and fractured her left wrist - she claims her BP was high at PCP office Orthopedics note reviewed, nonoperative treatment-on a soft cast -follow-up 1-[address] Patel Neurology has seen, MRI ordered, pending-need to rule out CVA but likely will be normal Hydralazine I did order because of blood pressure 180s 170s-now down to 140s after administration Patient is compliant with BP meds Plan Follow up Ortho upon discharge Follow up MRI of the brain ordered by neurology She has a systolic murmur appreciable grade 4-6 and auscultation but she just had a recent echo and follows up with cardiology as outpatient I will need to increase BP meds upon discharge-seems to get better with hydralazine 10 IV push dw with multiple family members and RN at bedside Vitals Vitals Vital Signs Date Time Temp Pulse Resp B/P (MAP) Pulse Ox O2 Delivery O2 Flow Rate FiO2 01/11/19 11:00 98.5 74 16 141/72 (95) 96 Room Air 98.5 Physical Exam General: Alert, Oriented X3, Cooperative, mild distress Heart: Regular rate, Normal S1, Normal S2 Lungs: Clear Abdomen: Normal bowel sounds, Soft Extremities: Normal pulses, Other (left wrist splint/soft cast) Skin: No significant lesion Labs LABS Laboratory Tests Test 01/11/19 09:30 25-Hydroxy Vitamin D Total 36.9 ng/mL (30-100) Review of Systems Review of Systems A 14 point ROS was completed with the following noted as positive: Other systems reviewed and negative. \CONSTITUTIONAL: No fever or chills EYES: No recent changes SKIN: No rash or itching CARDIOVASCULAR: No chest pain, syncope, palpitations, or edema RESPIRATORY: No SOB or cough GASTROINTESTINAL: No nausea, vomiting or abdominal pain NEUROLOGICAL: No headaches or weakness ENDOCRINE: No cold or heat intolerance GENITOURINARY: No urgency or frequency of urination MUSCULOSKELETAL: No back pain or joint pain LYMPHATICS: No enlarged lymph nodes PSYCHIATRIC: No anxiety or depression Assessment and Plan Assessmemt and Plan Problems Medical Problems: (1) Wrist fracture, left Status: Acute Comment Review of Relevant I have reviewed the following items [place] (where applicable) has been applied. Labs Laboratory Tests Test 01/10/19 11:10 01/10/19 11:30 01/11/19 09:30 Urine Collection Type Unknown Urine Color Yellow Urine Clarity Clear Urine pH 5.0 Urine Specific [place] 1.025 Urine Protein 30 mg/dL (NEG-TRACE) Urine Glucose (UA) Negative mg/dL (NEG) Urine Ketones (Stick) Negative mg/dL (NEG) Urine Blood Negative (NEG) Urine Nitrite Negative (NEG) Urine Bilirubin Negative (NEG) Urine Urobilinogen Dipstick 0.2 mg/dL (0.2 mg/dL) Urine Leukocyte Esterase Negative (NEG) Urine RBC Occ /HPF (0-2) Urine WBC 1-4 /HPF (0-4) Urine Squamous Epithelial Cells Few /LPF Urine Bacteria Few /HPF (0-FEW) Urine Mucus Marked /LPF White Blood Count 8.7 x10^3/uL (4.0-11.0) Red Blood Count 4.49 x10^6/uL (3.50-5.40) Hemoglobin 13.0 g/dL (12.0-15.5) Hematocrit 40.5 % (36.0-47.0) Mean Corpuscular Volume 90 fL (79-100) Mean Corpuscular Hemoglobin 29 pg (25-35) Mean Corpuscular Hemoglobin Concent 32 g/dL (31-37) Red Cell Distribution Width 13.6 % (11.5-14.5) Platelet Count 192 x10^3/uL (140-400) Neutrophils (%) (Auto) 82 % (31-73) Lymphocytes (%) (Auto) 9 % (24-48) Monocytes (%) (Auto) 7 % (0-9) Eosinophils (%) (Auto) 1 % (0-3) Basophils (%) (Auto) 1 % (0-3) Neutrophils # (Auto) 7.1 x10^3uL (1.8-7.7) Lymphocytes # (Auto) 0.8 x10^3/uL (1.0-4.8) Monocytes # (Auto) 0.6 x10^3/uL (0.0-1.1) Eosinophils # (Auto) 0.1 x10^3/uL (0.0-0.7) Basophils # (Auto) 0.1 x10^3/uL (0.0-0.2) Sodium Level 139 mmol/L (136-145) Potassium Level 3.8 mmol/L (3.5-5.1) Chloride Level 101 mmol/L (98-107) Carbon Dioxide Level 27 mmol/L (21-32) Anion Gap 11 (6-14) Blood Urea Nitrogen 23 mg/dL (7-20) Creatinine 1.1 mg/dL (0.6-1.0) Estimated GFR (Cockcroft-Gault) 47.1 BUN/Creatinine Ratio 21 (6-20) Glucose Level 127 mg/dL (70-99) Calcium Level 9.6 mg/dL (8.5-10.1) Magnesium Level 1.8 mg/dL (1.8-2.4) Total Bilirubin 0.9 mg/dL (0.2-1.0) Aspartate Amino Transf (AST/SGOT) 23 U/L (15-37) Alanine Aminotransferase (ALT/SGPT) 29 U/L (14-59) Alkaline Phosphatase 42 U/L (46-116) Troponin I Quantitative < 0.017 ng/mL (0.000-0.055) Total Protein 6.6 g/dL (6.4-8.2) Albumin 3.9 g/dL (3.4-5.0) Albumin/Globulin Ratio 1.4 (1.0-1.7) 25-Hydroxy Vitamin D Total 36.9 ng/mL (30-100) Laboratory Tests Test 01/11/19 09:30 25-Hydroxy Vitamin D Total 36.9 ng/mL (30-100) Medications Current Medications Sodium Chloride 500 ml @ 500 mls/hr 1X ONCE IV Last administered on 01/10/19at 11:49; Start 01/10/19 at 11:45; Stop 01/10/19 at 12:44; Status DC Ondansetron HCl (Zofran) 4 mg 1X ONCE IV Last administered on 01/10/19at 11:48; Start 01/10/19 at 11:45; Stop 01/10/19 at 11:46; Status DC Acetaminophen (Tylenol) 650 mg PRN Q4HRS PRN PO PAIN Last administered on 01/11/19 07:40; Start 01/10/19 at 13:15; Stop 01/11/19 at 13:14 Aspirin (Children'S Aspirin) 81 mg DAILY PO Last administered on 01/11/19 08:10 ; Start 01/11/19 at 09:00 Metoprolol Succinate (Toprol Xl) 25 mg DAILY PO Last administered on 01/11/19 08:11; Start 01/11/19 at 09:00 Vitamin D (Vitamin D3) 1,000 unit DAILY PO Last administered on 01/11/19 08:10; Start 01/11/19 at 09:00 Fish Oil (Fish Oil) 1,000 mg BID PO Last administered on 01/11/19 08:10; Start 01/10/19 at 21:00 Hydralazine HCl (Apresoline Inj) 10 mg PRN Q4HRS PRN IVP ELEVATED BP, SEE COMMENTS Last administered on 01/11/19at 09:59; Start 01/11/19 at 09:00 Ondansetron HCl (Zofran) 4 mg PRN Q6HRS PRN IV NAUSEA/VOMITING; Start 01/11/19 at 09:00 Tramadol HCl (Ultram) 25 mg PRN Q6HRS PRN PO MILD TO MODERATE PAIN; Start 01/11/19 at 09:00 Ketorolac Tromethamine (Toradol 15mg Vial) 15 mg PRN Q6HRS PRN IV PAIN; Start 01/11/19 at 09:00; Stop 01/16/19 at 08:59 Active Scripts Active Reported Vitamin D (Cholecalciferol (Vitamin D3)) 1,000 Unit Capsule 1 Cap PO DAILY Children's Aspirin (Aspirin) 81 Mg Tab.chew 81 Mg PO DAILY Fish Oil 1,000 Mg Softgel ([place]-3 Fatty Acids/Fish Oil) 1 Each Capsule 1 Each PO BID Metoprolol Succinate ( Xl ) (Metoprolol Succinate) 25 Mg Tab.er.24h 1 Tab PO DAILY Vitals/I & O Vital Sign - Last 24 Hours 01/10/19 01/10/19 01/10/19 01/10/19 12:00 13:00 14:15 15:43 Temp 97.5 97.5 Pulse 70 68 75 Resp 16 16 18 B/P (MAP) 179/85 (116) 178/86 (116) 179/95 (123) Pulse Ox 98 95 98 O2 Delivery Room Air Room Air Room Air Room Air 01/10/19 01/10/19 01/10/19 01/10/19 16:48 19:13 20:00 23:13 Temp 97.4 97.8 98.1 97.4 97.8 98.1 Pulse 65 64 68 Resp 18 18 18 B/P (MAP) 157/89 (111) 169/84 (112) 151/91 (111) Pulse Ox 95 97 96 O2 Delivery Room Air Room Air Room Air Room Air 01/11/19 01/11/19 01/11/19 01/11/19 03:24 07:00 08:11 09:59 Temp 98.0 97.9 98.0 97.9 Pulse 73 66 66 Resp 18 16 B/P (MAP) 188/83 (118) 189/100 (129) 189/100 187/97 Pulse Ox 95 95 O2 Delivery Room Air Room Air 01/11/19 11:00 Temp 98.5 98.5 Pulse 74 Resp 16 B/P (MAP) 141/72 (95) Pulse Ox 96 O2 Delivery Room Air Intake and Output 0 01/10/19 01/10/19 01/11/19 15:00 23:00 07:00 Intake Total 400 ml 220 ml Output Total 1 ml Balance 399 ml 220 ml JULIANA HOWELL MD January 11, 2019 11:53
[2019-01-11] MEDS ORDERED: HYDR-2867 PO (11:54)
--- NOTE | 2019-01-11 11:58 | PDOC3 ---
Discharge Summary Visit Information Date of Admission: January 10, 2019 Date of Discharge: January 11, 2019 Admitting Diagnosis Comment: Left wrist fracture Traumatic fall at home Geriatric Accelerated hypertension POA Final Diagnosis Problems Medical Problems: (1) Wrist fracture, left Status: Acute Brief Hospital Course Allergies Allergies Coded Allergies Type Severity Reaction Last Updated Verified NSAIDS (Non-Steroidal Anti-Inflamma Allergy Intermediate 09/15/15 Yes Opioids - Morphine Analogues Allergy Intermediate 09/15/15 Yes Opioids-Meperidine and Related Allergy Intermediate 09/15/15 Yes Opioids-Methadone and Related Allergy Intermediate 09/15/15 Yes butorphanol Allergy Intermediate 09/15/15 Yes codeine Allergy Intermediate 09/15/15 Yes hydrocodone Allergy Intermediate 09/15/15 Yes oxycodone Allergy Intermediate 09/15/15 Yes pentazocine Allergy Intermediate 09/15/15 Yes Vital Signs Vital Signs Date Time Temp Pulse Resp B/P (MAP) Pulse Ox O2 Delivery O2 Flow Rate FiO2 01/11/19 11:00 98.5 74 16 141/72 (95) 96 Room Air 98.5 Lab Results Laboratory Tests Test 01/10/19 11:10 01/10/19 11:30 01/11/19 09:30 Urine Collection Type Unknown Urine Color Yellow Urine Clarity Clear Urine pH 5.0 Urine Specific [place] 1.025 Urine Protein 30 mg/dL (NEG-TRACE) Urine Glucose (UA) Negative mg/dL (NEG) Urine Ketones (Stick) Negative mg/dL (NEG) Urine Blood Negative (NEG) Urine Nitrite Negative (NEG) Urine Bilirubin Negative (NEG) Urine Urobilinogen Dipstick 0.2 mg/dL (0.2 mg/dL) Urine Leukocyte Esterase Negative (NEG) Urine RBC Occ /HPF (0-2) Urine WBC 1-4 /HPF (0-4) Urine Squamous Epithelial Cells Few /LPF Urine Bacteria Few /HPF (0-FEW) Urine Mucus Marked /LPF White Blood Count 8.7 x10^3/uL (4.0-11.0) Red Blood Count 4.49 x10^6/uL (3.50-5.40) Hemoglobin 13.0 g/dL (12.0-15.5) Hematocrit 40.5 % (36.0-47.0) Mean Corpuscular Volume 90 fL (79-100) Mean Corpuscular Hemoglobin 29 pg (25-35) Mean Corpuscular Hemoglobin Concent 32 g/dL (31-37) Red Cell Distribution Width 13.6 % (11.5-14.5) Platelet Count 192 x10^3/uL (140-400) Neutrophils (%) (Auto) 82 % (31-73) Lymphocytes (%) (Auto) 9 % (24-48) Monocytes (%) (Auto) 7 % (0-9) Eosinophils (%) (Auto) 1 % (0-3) Basophils (%) (Auto) 1 % (0-3) Neutrophils # (Auto) 7.1 x10^3uL (1.8-7.7) Lymphocytes # (Auto) 0.8 x10^3/uL (1.0-4.8) Monocytes # (Auto) 0.6 x10^3/uL (0.0-1.1) Eosinophils # (Auto) 0.1 x10^3/uL (0.0-0.7) Basophils # (Auto) 0.1 x10^3/uL (0.0-0.2) Sodium Level 139 mmol/L (136-145) Potassium Level 3.8 mmol/L (3.5-5.1) Chloride Level 101 mmol/L (98-107) Carbon Dioxide Level 27 mmol/L (21-32) Anion Gap 11 (6-14) Blood Urea Nitrogen 23 mg/dL (7-20) Creatinine 1.1 mg/dL (0.6-1.0) Estimated GFR (Cockcroft-Gault) 47.1 BUN/Creatinine Ratio 21 (6-20) Glucose Level 127 mg/dL (70-99) Calcium Level 9.6 mg/dL (8.5-10.1) Magnesium Level 1.8 mg/dL (1.8-2.4) Total Bilirubin 0.9 mg/dL (0.2-1.0) Aspartate Amino Transf (AST/SGOT) 23 U/L (15-37) Alanine Aminotransferase (ALT/SGPT) 29 U/L (14-59) Alkaline Phosphatase 42 U/L (46-116) Troponin I Quantitative < 0.017 ng/mL (0.000-0.055) Total Protein 6.6 g/dL (6.4-8.2) Albumin 3.9 g/dL (3.4-5.0) Albumin/Globulin Ratio 1.4 (1.0-1.7) 25-Hydroxy Vitamin D Total 36.9 ng/mL (30-100) Laboratory Tests Test 01/11/19 09:30 25-Hydroxy Vitamin D Total 36.9 ng/mL (30-100) Brief Hospital Course Ms. Carter is a 88 old lives alone with a PET and still drives, blood pressure runs on the high side during PCP visits, per her relay. Was dizzy, fell at home, no syncope. Fractured her left wrist and nonoperative management per Ortho. Advise follow-up 1-2 weeks. She already has a splint or soft cast. Blood pressure better with hydralazine IV push. I'm discharging on hydralazine 10 twice a day. She is compliant with metoprolol 25 once a day. Her heart rate can be on the low side 60 to 70s hence I did not increase her beta jf Discharge disposition home pending PT eval Follow-up PCP 4 weeks regarding BP Follow-up for [facility] 1-2 weeks regarding left wrist fracture Discharge Information Condition at Discharge: Improved, Stable Follow Up: Weeks (ortho 1-2 weeks) Disposition/Orders: D/C to Home Scheduled Aspirin (Children's Aspirin) 81 Mg Tab.chew, 81 MG PO DAILY, (Reported) Entered as Reported by: JIMMY CLARK on 09/15/15202 Last Action: Continued on 01/10/192012 by DILMA HYLTON MD Cholecalciferol (Vitamin D3) (Vitamin D) 1,000 Unit Capsule, 1 CAP PO DAILY, #30 Ref 3 (Reported) Entered as Reported by: JIMMY CLARK on 09/15/15202 Last Action: Converted on 01/10/192012 by DILMA HYLTON MD Hydralazine Hcl (Hydralazine Hcl) 10 Mg Tablet, 1 TAB PO BID for htn, #60 Ref 3 Prescribed by: JULIANA HOWELL on 01/11/19 1154 Metoprolol Succinate (Metoprolol Succinate ( Xl )) 25 Mg Tab.er.24h, 1 TAB PO DAILY, #30 Ref 5 (Reported) Entered as Reported by: JIMMY CLARK on 09/15/15202 Last Action: Continued on 01/10/192012 by DILMA HYLTON MD [place]-3 Fatty Acids/Fish Oil (Fish Oil 1,000 Mg Softgel) 1 Each Capsule, 1 EACH PO BID, (Reported) Entered as Reported by: JIMMY CLARK on 09/15/15 0203 Last Action: Converted on 01/10/192012 by MD DANTE ALTMAN CHERRIE Y MD January 11, 2019 11:58
--- NOTE | 2019-01-11 13:58 | RAD ---
EXAMINATION: Magnetic resonance imaging (MRI) of the brain and brainstem without contrast 01/11/2019 9:02 AM HISTORY: Dizziness TECHNIQUE: Multiplanar multi-weighted MRI of the brain and brainstem was performed without intravenous contrast using the general brain protocol. COMPARISON: None available. FINDINGS: Evaluation is degraded by motion artifact. The scalp and calvarium are normal. The superior sagittal sinus demonstrates normal venous flow. The corpus callosum is normal in shape and signal intensity. The posterior fossa is unremarkable. The pituitary and sella are normal. The brainstem and craniocervical junction are unremarkable. There are T2/FLAIR signal hyperintense foci in the right middle cerebellar peduncle, periventricular and subcortical white matter most suggestive of mild chronic small vessel ischemic changes. Hippocampi are symmetric in signal intensity and morphology without significant atrophy. Diffusion weighted images reveal no hyperintensities to suggest acute cerebral infarction. Punctate area susceptibility artifact is identified in the medial left dentate nucleus which may represent a microhemorrhage versus tiny cavernoma. The ventricles are normal in size and position without evidence of hydrocephalus. The paranasal sinuses are normal. The visualized portions of the mastoids are unremarkable. The orbits appear normal the exception of bilateral lens replacement. Normal flow voids are demonstrated in the carotid arteries and basilar artery. IMPRESSION: Evaluation is degraded by motion artifact. 1. No evidence for acute or subacute ischemia. 2. There are T2/FLAIR signal hyperintense foci in the right middle cerebellar peduncle, periventricular and subcortical white matter most suggestive of mild chronic small vessel ischemic changes. 3. Punctate area of susceptibility in the left dentate nucleus may represent microhemorrhage versus tiny cavernoma. Electronically signed by: Shanel Stanton MD (01/11/2019 1:55 PM) [id number]
[2019-01-11] MEDS ORDERED: hydrALAZINE 10 MG TABLET PO SCH (14:00)
[2019-01-11 15:00] VITALS: BP 131/72
--- NOTE | 2019-01-11 17:45 | NUR ---
Discharge Note: VALERIE MILNER [address] [place] [address] Discharge instructions and discharge home medications reviewed with Patient and a copy given. All questions have been answered and understanding verbalized. The following instructions and handouts were given: Wrist fx care, Hangar instruction on wrist splint, f/u appts Discontinued lines and drains: 1 x PIV tip intact. Patient discharged to home with family members at side.
== END 2019-01-11 17:37 | disposition home or self-care (01) | DRG 563 ==
LOC: ER 10:41 → 6 SOUTH 12:35
PROVIDERS: ADMIT Internal Medicine; ATTEND Internal Medicine
PROC: 2W3BX1Z Immobilization of Left Upper Arm using Splint (ICD-10-PCS; principal; 2019-01-10)
DX: S52.515A Nondisplaced fracture of left radial styloid process, initial encounter for closed fracture (principal); I11.9 Hypertensive heart disease without heart failure; S52.615A Nondisplaced fracture of left ulna styloid process, initial encounter for closed fracture; J44.9 Chronic obstructive pulmonary disease, unspecified; M47.9 Spondylosis, unspecified; Z82.49 Family history of ischemic heart disease and other diseases of the circulatory system; Z91.81 History of falling; M19.90 Unspecified osteoarthritis, unspecified site; W18.39XA Other fall on same level, initial encounter; Y93.89 Activity, other specified; Y92.89 Other specified places as the place of occurrence of the external cause; Y99.8 Other external cause status
CPT/HCPCS: 36415; 70450; 70551; 71045; 72125; 73110; 80053; 81001; 82306; 83735; 84484; 85025; 93005; 96361; 96374; J0360; J1885; J2405; J7040; 99285-25

== ENCOUNTER 2019-08-09 14:59 | Emergency (ER) | payer OTHER ==
[~2019-08-09] VITALS: Ht 157.5 cm; Wt 42.6 kg
[~2019-08-09 14:59] MED LIST changes: +HYDR-2867 PO
--- NOTE | 2019-08-09 15:48 | PHYS DOC ---
Past Medical History Past Medical History: Arthritis, Hypertension Past Surgical History: Cholecystectomy Alcohol Use: None Drug Use: None Adult General Chief Complaint Chief Complaint: MECHANICAL FALL HPI HPI Patient is a 89 year old female who presents with a fall. The patient was at [place] with [place] shopping when she tripped over concrete as it went to bricks and there was an uneven step. The patient negative loss of consciousness, and denies blood thinner use exception of baby aspirin. She is complaining of sternum pain, and left-sided rib pain after the fall. She also fell and hit her face and has a small abrasion to the left side of her face. Review of Systems Review of Systems Constitutional: Denies fever or chills [] Eyes: Denies change in visual acuity, redness, or eye pain [] HENT: Denies nasal congestion or sore throat [] Respiratory: Reports it hurts to take a deep breath. Cardiovascular: No additional information not addressed in HPI [] GI: Denies abdominal pain, nausea, vomiting, bloody stools or diarrhea [] : Denies dysuria or hematuria [] Musculoskeletal: Reports sternum pain, L sided rib pain. Also reports R wrist pain. Integument: Denies rash or skin lesions [] Neurologic: Denies headache, focal weakness or sensory changes [] Endocrine: Denies polyuria or polydipsia [] Complete systems were reviewed and found to be within normal limits, except as documented in this note. Allergies Allergies Allergies Coded Allergies Type Severity Reaction Last Updated Verified NSAIDS (Non-Steroidal Anti-Inflamma Allergy Intermediate 09/15/15 Yes Opioids - Morphine Analogues Allergy Intermediate 09/15/15 Yes Opioids-Meperidine and Related Allergy Intermediate 09/15/15 Yes Opioids-Methadone and Related Allergy Intermediate 09/15/15 Yes butorphanol Allergy Intermediate 09/15/15 Yes codeine Allergy Intermediate 09/15/15 Yes hydrocodone Allergy Intermediate 09/15/15 Yes oxycodone Allergy Intermediate 09/15/15 Yes pentazocine Allergy Intermediate 09/15/15 Yes Physical Exam Physical Exam Constitutional: Well developed, well nourished, no acute distress, non-toxic appearance. [] HENT: Normocephalic, bilateral external ears normal, oropharynx moist, no oral e xudates, nose normal. Tenderness to L orbital. Eyes: PERRLA, EOMI, conjunctiva normal, no discharge. [] Neck: Normal range of motion, no tenderness, supple, no stridor. [] Cardiovascular:Heart rate regular rhythm, no murmur [] Lungs & Thorax: Bilateral breath sounds clear to auscultation but diminished. Abdomen: Bowel sounds normal, soft, no tenderness, no masses, no pulsatile masses. [] Skin: abrasion to left cheek. Back: No tenderness, no CVA tenderness. [] Extremities: Tenderness and mild edema to R wrist. Tenderness to L ribs, and sternum. Neurologic: Alert and oriented X 3, normal motor function, normal sensory function, no focal deficits noted. [] Psychologic: Affect normal, judgement normal, mood normal. [] Current Patient Data Vital Signs Vital Signs Date Time Temp Pulse Resp B/P (MAP) Pulse Ox O2 Delivery O2 Flow Rate FiO2 08/09/19 15:40 98.1 78 20 226/119 (154) 96 Room Air 98.1 EKG EKG [] Radiology/Procedures Radiology/Procedures [facility] [address] [place], [place] [id number] IMAGING REPORT Signed PATIENT: VALERIE MILNER ACCOUNT: [id number] : 1930 LOCATION: ER AGE: 89 SEX: F EXAM STATUS: REG ER ORD. PHYSICIAN: CINDY PEGUERO APRN REASON: fall.pt states she fell shopping today, pain lt upper ribs across chest. PROCEDURE: RIBS LEFT AND PA CHEST Indications: Fall swelling and pain Three-view right wrist study: No acute fracture or dislocation or lytic process is seen. Small well-defined accessory ossicle is seen posteriorly. 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 Primary degenerative osteoarthritis of the radial scaphoid joint is seen. IMPRESSION: No acute fracture. 2 view left rib detail series and PA view chest x-ray: There are nondisplaced fractures of the lateral aspect of the left fourth and fifth and sixth and seventh ribs. No pneumothorax or pleural effusion or lung consolidation is seen. Cardiomegaly is evident. The mediastinum is unremarkable. IMPRESSION: Nondisplaced acute left rib fractures. Cardiomegaly. Electronically signed by: David Pierre MD (08/09/2019 4:23 PM) [facility] DICTATED and SIGNED BY: DAVID PIERRE MD DATE: 08/09/19 8490 [][facility] [address] [place] [address] IMAGING REPORT Signed PATIENT: VALERIE MILNER ACCOUNT: [id number] : 1930 LOCATION: ER AGE: 89 SEX: F EXAM STATUS: REG ER ORD. PHYSICIAN: CINDY PEGUERO APRN REASON: fall, FACIAL INJURY PROCEDURE: CT HEAD AND MAXILLOFACIAL WO CT HEAD AND MAXILLOFACIAL WO History: Fall. Facial injury. Pain. Comparison: January 10, [address] Technique: Noncontrast CT imaging was performed of the head and maxillofacial. Coronal and sagittal reconstructions were performed. Exposure: One or more of the following individualized dose reduction techniques were utilized for this examination: 1. Automated exposure control 2. Adjustment of the mA and/or kV according to patient size 3. Use of iterative reconstruction technique. Findings: Head CT: No intracranial hemorrhage. No mass effect. No hydrocephalus. Mild brain parenchymal volume loss. Mild foci of decreased attenuation within the hemispheric white matter, most often due to chronic microvascular ischemia, unchanged. Maxillofacial CT: No acute maxillofacial fracture. Orbits are unremarkable. Left posterior ethmoid sinus mucous retention cyst or polyp. Minimal left sphenoid sinus mucosal thickening. Mastoid air cells are clear. No acute calvarial fracture. TMJ arthropathy. Dental amalgam. Multifocal carious dentition and periodontal disease. Impression: 1. No acute intracranial abnormality. 2. No acute maxillofacial fracture. Electronically signed by: Kyle Guo DO (08/09/2019 4:17 PM) [facility] DICTATED and SIGNED BY: KYLE GUO DO DATE: 08/09/19 7939 Course & Med Decision Making Course & Med Decision Making Pertinent Labs and Imaging studies reviewed. (See chart for details) Will get R wrist, Chest x-ray with L ribs, and will get Ct head/face. IMPRESSION: No acute wrist fracture. 2 view left rib detail series and PA view chest x-ray: There are nondisplaced fractures of the lateral aspect of the left fourth and fifth and sixth and seventh ribs. No pneumothorax or pleural effusion or lung consolidation is seen. Cardiomegaly is evident. The mediastinum is unremarkable. IMPRESSION: Nondisplaced acute left rib fractures. Cardiomegaly. Electronically signed by: David Pierre MD (08/09/2019 4:23 PM) [facility] Discussed rib fractures with patient and family. I discussed I am concerned that she is at high risk for pneumonia due to fractures. Will have nursing give an incentive spirometer for use at home. Discussed pain control. Unable to prescribe opiods or any pain medications besides Tylenol due to allergies. Will have her take Tylenol at home. Patient is agreeable to this plan. I discussed that if she starts running fever or coughing to bring back to ER. Dragon Disclaimer Dragon Disclaimer This electronic medical record was generated, in whole or in part, using a voice recognition dictation system. Departure Departure Impression: Primary Impression: Ribs, multiple fractures Disposition: HOME, SELF-CARE Condition: STABLE Referrals: UNKNOWN PCP NAME (PCP) Patient Instructions: Rib Fracture Additional Instructions: Thank you for visiting [facility]. We appreciate you trusting us with your care. If any additional problems come up don't hesitate to return to visit us. Please follow up with your primary care provider so they can plan additional care if needed and know about the problem that you had. If symptoms worsen come back to the Emergency Department. Any concerning symptoms that start such as chest pain, shortness of air, weakness or numbness on one side of the body, running high fevers or any other concerning symptoms return to the ER. As we discussed if you start running fevers or coughing return to ER. Please use incentive spirometer as directed. Problem Qualifiers Primary Impression: Ribs, multiple fractures Encounter type: initial encounter Fracture type: closed Laterality: left Qualified Codes: S22.42XA - Multiple fractures of ribs, left side, initial encounter for closed fracture CINDY PEGUERO APRN Aug 09, 2019 15:48
--- NOTE | 2019-08-09 16:20 | RAD ---
CT HEAD AND MAXILLOFACIAL WO History: Fall. Facial injury. Pain. Comparison: January 10, [address] Technique: Noncontrast CT imaging was performed of the head and maxillofacial. Coronal and sagittal reconstructions were performed. Exposure: One or more of the following individualized dose reduction techniques were utilized for this examination: 1. Automated exposure control 2. Adjustment of the mA and/or kV according to patient size 3. Use of iterative reconstruction technique. Findings: Head CT: No intracranial hemorrhage. No mass effect. No hydrocephalus. Mild brain parenchymal volume loss. Mild foci of decreased attenuation within the hemispheric white matter, most often due to chronic microvascular ischemia, unchanged. Maxillofacial CT: No acute maxillofacial fracture. Orbits are unremarkable. Left posterior ethmoid sinus mucous retention cyst or polyp. Minimal left sphenoid sinus mucosal thickening. Mastoid air cells are clear. No acute calvarial fracture. TMJ arthropathy. Dental amalgam. Multifocal carious dentition and periodontal disease. Impression: 1. No acute intracranial abnormality. 2. No acute maxillofacial fracture. Electronically signed by: Kyle Guo DO (08/09/2019 4:17 PM) [facility]
--- NOTE | 2019-08-09 16:26 | RAD ---
Indications: Fall swelling and pain Three-view right wrist study: No acute fracture or dislocation or lytic process is seen. Small well-defined accessory ossicle is seen posteriorly. 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 Primary degenerative osteoarthritis of the radial scaphoid joint is seen. IMPRESSION: No acute fracture. 2 view left rib detail series and PA view chest x-ray: There are nondisplaced fractures of the lateral aspect of the left fourth and fifth and sixth and seventh ribs. No pneumothorax or pleural effusion or lung consolidation is seen. Cardiomegaly is evident. The mediastinum is unremarkable. IMPRESSION: Nondisplaced acute left rib fractures. Cardiomegaly. Electronically signed by: Angel Pierre MD (08/09/2019 4:23 PM) [facility]
[2019-08-09 17:19] VITALS: BP 212/108
== END 2019-08-09 17:33 | disposition home or self-care (01) ==
LOC: ER 14:59
DX: S22.42XA Multiple fractures of ribs, left side, initial encounter for closed fracture (principal); S00.81XA Abrasion of other part of head, initial encounter; M25.531 Pain in right wrist; I10 Essential (primary) hypertension; M19.90 Unspecified osteoarthritis, unspecified site; Z88.5 Allergy status to narcotic agent; Z88.8 Allergy status to other drugs, medicaments and biological substances; W18.09XA Striking against other object with subsequent fall, initial encounter; Y93.89 Activity, other specified; Y92.29 Other specified public building as the place of occurrence of the external cause; Y99.8 Other external cause status
CPT/HCPCS: 70450; 70486; 71101; 73110; 99284